=== PATIENT | male | born 1965 | race Caucasian/White ===

== ENCOUNTER → 2018-08-15 14:54 | Outpatient (CLI) | payer OTHER, SELFPAY ==
[2018-08-15 16:26] LABS: ALB/GLOB Ratio 0.8 RATIO (0.9-2.4); AST(SGOT) 26 U/L (15-37); Alanine Aminotransfer ALT/SGPT 35 U/L (16-61); Albumin, Serum 3.5 g/dL (3.2-5.0); Alkaline Phosphatase 141 U/L (45-117); Anion Gap 8 (5-15); BUN 18 mg/dL (7-18); BUN/Creat Ratio 17.1 RATIO (10-20); Calcium,Total 8.9 mg/dL (8.5-10.1); Chloride 103 mmol/L (98-107); Cholesterol 205 mg/dL (200); Creatinine, Serum 1.05 mg/dL (0.70-1.30); EST Glomerular Filtration Rate 78 mL/min (>60); Est Glom Filt Rate - Afr Amer 95 mL/min (>60); Globulin 4.5 g/dL (2.2-4.2); Glucose 143 mg/dL (74-106); High Density Lipoprotein 71 mg/dL; Potassium 4.2 mmol/L (3.5-5.1); Sodium Level 139 mmol/L (136-145); Triglycerides 86 mg/dL; Very Low Density Lipoprotein 17 mg/dL (5-40)
== END ==
PROVIDERS: Family Provider Family Medicine; PCP Family Medicine; Referring Provider Nurse Practitioner; Visit Provider Nurse Practitioner
DX: E11.9 Type 2 diabetes mellitus without complications (principal)
CPT/HCPCS: 36415; 80053; 80061; 82043; 82570; 83036

== ENCOUNTER → 2018-08-18 13:51 | Outpatient (CLI) | payer OTHER, SELFPAY ==
[2018-01-20 15:39] VITALS: BMI 23.0
[2018-08-18 13:54] LABS: Bacteria 0 SEEN /hpf (None Seen); Mucous, Urine 0 SEEN /hpf (<or=2+); Red Blood Cells-Urine 0 SEEN /hpf (0-5); Squamous Epithelial Cells - UA 0 SEEN /hpf (0-5); White Blood Cells 0 SEEN /hpf (0-5)
[2018-08-18 15:01] LABS: Color, Urine Yellow (Yellow); Glucose, Dipstick Normal (Normal); Ketone-Dipstick Negative (Negative); Leukocyte Esterase-Dipstick Negative /ul (Negative); Nitrite-Dipstick Negative (Negative); Occult Blood-Urine Negative /ul (Negative); Protein-Dipstick 30 mg/dl (Negative); Specific Gravity, Urine 1.005 (1.002-1.030); Urine Bilirubin Dipstick Negative (Negative); Urine Clarity Sl. Cloudy (Clear); Urine Urobilinogen Normal (Normal)
[2018-08-22 11:34] LABS: Microalbumin:Creatinine Ratio 1714.3 mg/g CRE (<30 mg/g CRE)
== END ==
PROVIDERS: Family Provider Family Medicine; PCP Family Medicine; Referring Provider Nurse Practitioner; Visit Provider Nurse Practitioner
DX: E10.9 Type 1 diabetes mellitus without complications (principal)
CPT/HCPCS: 81001; 82043; 82570

== ENCOUNTER → 2020-09-12 15:10 | Outpatient (CLI) | payer BC, SELFPAY ==
[2020-09-12 14:10] VITALS: BMI 25.0
[2020-09-12 16:54] LABS: ALB/GLOB Ratio 1.2 RATIO (0.9-2.4); AST(SGOT) 40 U/L (15-37); Alanine Aminotransfer ALT/SGPT 50 U/L (16-61); Albumin, Serum 3.6 g/dL (3.2-5.0); Alkaline Phosphatase 143 U/L (45-117); Anion Gap 6 (5-15); BUN 13 mg/dL (7-18); BUN/Creat Ratio 12.1 RATIO (10-20); Calcium,Total 9.1 mg/dL (8.5-10.1); Chloride 104 mmol/L (98-107); Cholesterol 218 mg/dL (200); Creatinine, Serum 1.07 mg/dL (0.70-1.30); EST Glomerular Filtration Rate 76 mL/min (>60); Est Glom Filt Rate - Afr Amer 92 mL/min (>60); Globulin 3.1 g/dL (2.2-4.2); Glucose 72 mg/dL (74-106); High Density Lipoprotein 55 mg/dL; Potassium 4.4 mmol/L (3.5-5.1); Protein, Total 6.7 g/dL (6.4-8.2); Sodium Level 139 mmol/L (136-145); Thyroid Stim Hormone (TSH) 5.59 uIU/mL (0.358-3.74); Triglycerides 122 mg/dL; Very Low Density Lipoprotein 24 mg/dL (5-40)
== END ==
PROVIDERS: PCP Family Medicine; Referring Provider Internal Medicine Endocrinology, Diabetes & Metabolism; Visit Provider Internal Medicine Endocrinology, Diabetes & Metabolism
DX: E10.9 Type 1 diabetes mellitus without complications (principal)
CPT/HCPCS: 36415; 80053; 80061; 84443

== ENCOUNTER → 2021-02-06 15:27 | Outpatient (CLI) | payer BC, SELFPAY ==
[2021-02-06 14:43] VITALS: BMI 25.0
[2021-02-06 17:21] LABS: T4 Free Direct 1.02 ng/dL (0.76-1.46); Thyroid Stim Hormone (TSH) 1.83 uIU/mL (0.358-3.74)
[2021-02-06 21:25] LABS: Vitamin D,25 Hydroxy 36.2 ng/mL
== END ==
PROVIDERS: PCP Family Medicine; Referring Provider Nurse Practitioner Family; Visit Provider Nurse Practitioner Family
DX: E03.9 Hypothyroidism, unspecified (principal); E55.9 Vitamin D deficiency, unspecified
CPT/HCPCS: 36415; 82306; 84439; 84443

== ENCOUNTER 2021-10-15 15:12 | Outpatient (CLI) | payer BC, SELFPAY ==
[2021-10-15 17:34] LABS: ALB/GLOB Ratio 0.9 RATIO (0.9-2.4); AST(SGOT) 45 U/L (15-37); Alanine Aminotransfer ALT/SGPT 51 U/L (16-61); Albumin, Serum 3.8 g/dL (3.2-5.0); Alkaline Phosphatase 149 U/L (45-117); Anion Gap 6 (5-15); BUN 17 mg/dL (7-18); BUN/Creat Ratio 15.3 RATIO (10-20); Calcium,Total 9.4 mg/dL (8.5-10.1); Chloride 105 mmol/L (98-107); Cholesterol 157 mg/dL (200); Creatinine, Serum 1.11 mg/dL (0.70-1.30); EST Glomerular Filtration Rate 73 mL/min (>60); Est Glom Filt Rate - Afr Amer 88 mL/min (>60); Globulin 4.1 g/dL (2.2-4.2); Glucose 89 mg/dL (74-106); High Density Lipoprotein 58 mg/dL; Potassium 3.9 mmol/L (3.5-5.1); Protein, Total 7.9 g/dL (6.4-8.2); Sodium Level 137 mmol/L (136-145); T4 Free Direct 1.16 ng/dL (0.76-1.46); Thyroid Stim Hormone (TSH) 1.34 uIU/mL (0.358-3.74); Triglycerides 58 mg/dL; Very Low Density Lipoprotein 12 mg/dL (5-40)
== END 2021-10-15 23:59 | disposition home or self-care (01) ==
LOC: BIMLAB 15:13
PROVIDERS: PCP Family Medicine; Referring Provider Nurse Practitioner Family; Visit Provider Nurse Practitioner Family
DX: E10.65 Type 1 diabetes mellitus with hyperglycemia (principal); E55.9 Vitamin D deficiency, unspecified; E03.9 Hypothyroidism, unspecified
CPT/HCPCS: 36415; 80053; 80061; 82306; 84439; 84443

== ENCOUNTER → 2022-08-24 | Outpatient (CLI) | payer BC, SELFPAY ==
[2022-08-24 18:03] LABS: Vitamin D,25 Hydroxy 34.8 ng/mL
[2022-08-24 18:10] LABS: Microalbumin:Creatinine Ratio 2043.2 mg/g CRE (<30 mg/g CRE)
[2022-08-24 19:19] LABS: ALB/GLOB Ratio 0.9 RATIO (0.9-2.4); AST(SGOT) 57 U/L (15-37); Alanine Aminotransfer ALT/SGPT 68 U/L (16-61); Albumin, Serum 3.6 g/dL (3.2-5.0); Alkaline Phosphatase 176 U/L (45-117); Anion Gap 9 (5-15); BUN 27 mg/dL (7-18); BUN/Creat Ratio 19.4 RATIO (10-20); Calcium,Total 9.5 mg/dL (8.5-10.1); Chloride 104 mmol/L (98-107); Cholesterol 169 mg/dL (200); Creatinine, Serum 1.39 mg/dL (0.70-1.30); EST Glomerular Filtration Rate 56 mL/min (>60); Est Glom Filt Rate - Afr Amer 67 mL/min (>60); Glucose 184 mg/dL (74-106); High Density Lipoprotein 69 mg/dL; Potassium 4.2 mmol/L (3.5-5.1); Protein, Total 7.6 g/dL (6.4-8.2); Sodium Level 138 mmol/L (136-145); T4 Free Direct 1.12 ng/dL (0.76-1.46); Thyroid Stim Hormone (TSH) 2.56 uIU/mL (0.358-3.74); Triglycerides 92 mg/dL; Very Low Density Lipoprotein 18 mg/dL (5-40)
[2022-08-24 22:36] LABS: Follicle Stimulating Hormone 2.7 mIU/mL; Luteinizing Hormone 8.8 mIU/mL
[2022-08-30 11:07] LABS: Testosterone, Free 5.22 ng/dL (5.00-21.00)
[2022-08-30 15:20] LABS: Testosterone, % Free 0.85 % (1.50-4.20); Testosterone, Total 614 ng/dL (264-916)
== END | disposition home or self-care (01) ==
LOC: LAB 16:27
PROVIDERS: PCP Family Medicine; Referring Provider Internal Medicine Endocrinology, Diabetes & Metabolism; Visit Provider Internal Medicine Endocrinology, Diabetes & Metabolism
DX: E55.9 Vitamin D deficiency, unspecified (principal); E10.29 Type 1 diabetes mellitus with other diabetic kidney complication; R80.9 Proteinuria, unspecified; E03.9 Hypothyroidism, unspecified
CPT/HCPCS: 36415; 80053; 80061; 82043; 82306; 82570; 83001; 83002; 84402; 84403; 84439; 84443

== ENCOUNTER → 2022-09-16 | Outpatient (CLI) | payer BC, SELFPAY ==
[2022-09-16 16:32] LABS: Absolute Lymphocyte Count 3.16 X10^3/uL (0.83-4.51); Absolute Neutrophil Count 3.4 X10^3/uL (2.0-7.7); Basophil# 0.06 X10^3/uL; Basophil% 0.7 % (0-1); Eosinophil# 0.39 X10^3/uL; Eosinophils% 4.7 % (0-5); Hemoglobin 13.8 g/dL (13.0-16.5); Lymphocyte # 3.16 X10^3/ul (0.83-4.51); Mean Corp Hgb Conc 33.7 g/dL (32-36); Mean Corpuscular Hgb 30.6 pg (27.0-32.0); Mean Corpuscular Volume 90.9 fL (80-94); Mean Platelet Vol. 13.1 fl (6.2-12.0); Monocyte# 1.35 X10^3/uL; Monocyte% 16.2 % (0-10); NRBC Flagged by Analyzer 0 % (0-5); Neutrophil # 3.35 X10^3/uL (2.7-7.7); Neutrophil % 40.3 % (47-70); Platelet Count 208 K/mm3 (150-450); RBC Distribution Width SD 47.2 fl (35.1-43.9); Red Blood Count 4.51 M/mm3 (4.6-6.2); White Blood Count 8.3 K/mm3 (4.4-11.0)
[2022-09-18 08:29] LABS: Immunoglobulin G 1388 mg/dL (603-1613)
== END | disposition home or self-care (01) ==
PROVIDERS: PCP Family Medicine
DX: D80.3 Selective deficiency of immunoglobulin G [IgG] subclasses (principal)
CPT/HCPCS: 36415; 82784; 85025

== ENCOUNTER → 2022-10-10 | Outpatient (CLI) | payer BC, SELFPAY ==
--- NOTE | 2022-10-10 07:32 | US_ITS ---
INDICATION: High liver enzymes EXAMINATION: Ultrasound US Abdomen RUQ (limited) TECHNIQUE: Lucas-scale and color Doppler imaging was performed of the abdomen. COMPARISON: None. FINDINGS: LIVER: There is normal echotexture. No focal hepatic lesion. No intrahepatic biliary ductal dilatation. There is no free fluid. GALLBLADDER AND BILIARY TREE: No shadowing gallstone, pericholecystic fluid or gallbladder wall thickening is demonstrated. The proximal common bile duct measures 2.9 mm, which is within normal limits for the patient''s age. SONOGRAPHIC KIDD''S SIGN: Negative. PANCREAS: No focal abnormality is demonstrated in the pancreas. No pancreatic ductal dilatation. SPLEEN: The spleen is normal in size and homogeneous in echotexture. Right kidney: There is no hydronephrosis. No shadowing calculus, focal lesion, or perinephric collection is demonstrated. VESSELS: Aorta and IVC not visualized. US/Liver IMPRESSION: No acute sonographic abnormality is demonstrated in the abdomen. Electronically Signed: Kavin Helms MD, WAYLON at 8:36 EDT ,
== END | disposition home or self-care (01) ==
LOC: US 07:31
PROVIDERS: PCP Family Medicine; Visit Provider Internal Medicine Endocrinology, Diabetes & Metabolism
DX: R74.01 Elevation of levels of liver transaminase levels (principal)
CPT/HCPCS: 76705

== ENCOUNTER → 2022-12-22 | Outpatient (CLI) | payer BC, SELFPAY ==
[2022-12-22 14:18] LABS: Absolute Lymphocyte Count 3.48 X10^3/uL (0.83-4.51); Absolute Neutrophil Count 2.6 X10^3/uL (2.0-7.7); Basophil# 0.07 X10^3/uL; Basophil% 0.8 % (0-1); Differential Indicated SCAN CRITERIA MET; Eosinophils% 8.4 % (0-5); Hematocrit 43.2 % (40-54); Hemoglobin 14.4 g/dL (13.0-16.5); Lymphocyte # 3.48 X10^3/ul (0.83-4.51); Lymphocyte % 41.9 % (19-41); Mean Corp Hgb Conc 33.3 g/dL (32-36); Mean Corpuscular Hgb 31.1 pg (27.0-32.0); Mean Corpuscular Volume 93.3 fL (80-94); Mean Platelet Vol. 12.4 fl (6.2-12.0); Monocyte# 1.49 X10^3/uL; NRBC Flagged by Analyzer 0 % (0-5); Neutrophil # 2.55 X10^3/uL (2.7-7.7); Neutrophil % 30.8 % (47-70); POSITIVE MORPHOLOGY YES; Platelet Count 218 K/mm3 (150-450); RBC Distribution Width CV 14.5 % (11.6-14.6); RBC Distribution Width SD 49.8 fl (35.1-43.9); Red Blood Count 4.63 M/mm3 (4.6-6.2); White Blood Count 8.3 K/mm3 (4.4-11.0)
[2022-12-22 14:45] LABS: Differential Comment SCANNED
[2022-12-24 05:07] LABS: Immunoglobulin G 1373 mg/dL (603-1613)
== END | disposition home or self-care (01) ==
LOC: LAB 14:01
DX: D80.3 Selective deficiency of immunoglobulin G [IgG] subclasses (principal)
CPT/HCPCS: 36415; 82784; 85025

== ENCOUNTER → 2023-04-20 | Outpatient (CLI) | payer BC, SELFPAY ==
[2023-04-20 14:57] LABS: Absolute Lymphocyte Count 2.91 X10^3/uL (0.83-4.51); Absolute Neutrophil Count 2.4 X10^3/uL (2.0-7.7); Basophil# 0.06 X10^3/uL; Basophil% 0.8 % (0-1); Eosinophil# 0.31 X10^3/uL; Eosinophils% 4.3 % (0-5); Hematocrit 43.6 % (40-54); Hemoglobin 14.3 g/dL (13.0-16.5); Lymphocyte # 2.91 X10^3/ul (0.83-4.51); Lymphocyte % 40.1 % (19-41); Mean Corp Hgb Conc 32.8 g/dL (32-36); Mean Corpuscular Hgb 30.3 pg (27.0-32.0); Mean Corpuscular Volume 92.4 fL (80-94); Mean Platelet Vol. 13.4 fl (6.2-12.0); Monocyte# 1.55 X10^3/uL; Monocyte% 21.4 % (0-10); NRBC Flagged by Analyzer 0 % (0-5); Neutrophil # 2.41 X10^3/uL (2.7-7.7); Neutrophil % 33.3 % (47-70); POSITIVE DIFFERENTIAL YES; Platelet Count 193 K/mm3 (150-450); RBC Distribution Width CV 14.2 % (11.6-14.6); RBC Distribution Width SD 48.7 fl (35.1-43.9); Red Blood Count 4.72 M/mm3 (4.6-6.2); White Blood Count 7.3 K/mm3 (4.4-11.0)
[2023-04-20 15:17] LABS: Differential Indicated SCAN CRITERIA MET
[2023-04-22 05:07] LABS: Immunoglobulin G 1570 mg/dL (603-1613)
== END | disposition home or self-care (01) ==
DX: D80.3 Selective deficiency of immunoglobulin G [IgG] subclasses (principal)
CPT/HCPCS: 36415; 82784; 85025

== ENCOUNTER → 2023-08-03 | Outpatient (CLI) | payer BC, SELFPAY ==
[2023-08-03 14:40] LABS: Absolute Lymphocyte Count 2.92 X10^3/uL (0.83-4.51); Absolute Neutrophil Count 3.6 X10^3/uL (2.0-7.7); Basophil# 0.05 X10^3/uL; Basophil% 0.6 % (0-1); Eosinophil# 0.42 X10^3/uL; Eosinophils% 5.1 % (0-5); Hematocrit 44.1 % (40-54); Hemoglobin 14.5 g/dL (13.0-16.5); Lymphocyte # 2.92 X10^3/ul (0.83-4.51); Lymphocyte % 35.2 % (19-41); Mean Corp Hgb Conc 32.9 g/dL (32-36); Mean Corpuscular Hgb 30.7 pg (27.0-32.0); Mean Corpuscular Volume 93.4 fL (80-94); Mean Platelet Vol. 12.6 fl (6.2-12.0); Monocyte# 1.33 X10^3/uL; NRBC Flagged by Analyzer 0 % (0-5); Neutrophil # 3.56 X10^3/uL (2.7-7.7); Platelet Count 210 K/mm3 (150-450); RBC Distribution Width CV 14.5 % (11.6-14.6); Red Blood Count 4.72 M/mm3 (4.6-6.2); White Blood Count 8.3 K/mm3 (4.4-11.0)
[2023-08-05 05:08] LABS: Immunoglobulin G 1376 mg/dL (603-1613)
== END | disposition home or self-care (01) ==
LOC: LAB 14:05
DX: D80.3 Selective deficiency of immunoglobulin G [IgG] subclasses (principal)
CPT/HCPCS: 36415; 82784; 85025

== ENCOUNTER → 2023-08-17 | Outpatient (CLI) | payer BC, SELFPAY ==
--- OUTSIDE RECORDS SUMMARY | 2023-08-17 17:09 | XMS RPT_ITS | CCD ---
Author Name Unknown Address [address] [place] [address] Organization [facility] Care Team Providers Care Tieing Machine Operator Name Role Phone Negar Engle NP Unavailable [phone] Valerie Sexton Unavailable Unavailable Negar Engle NP Unavailable GORDON DORANTES, DR PETAR [place] Primary Care Physician GORDON DORANTES, DR PETAR [place] Primary Care Physician VITOR PECK Attending Emily LEYVA MD., DR. PETAR [place] [facility] VITOR Crockett Attending Emily LEYVA MD., DR. PETAR [place] [facility] MOOSE Chilel DO Attending Emily LEYVA MD., DR. PETAR [place] [facility] VITOR Crockett Attending Emily LEYVA MD., DR. PETAR [place] Primary [facility] VITOR Crockett Attending Emily LEYVA MD., DR. PETAR [place] Primary [facility] VITOR Crockett Attending Emily LEYVA MD., DR. PETAR [place] Primary [facility] VITOR Crockett Attending Unavailable GORDON MISHRA, DR. PETAR [place] Primary [facility] VITOR Crockett Attending Emily LEYVA MD., DR. PETAR [place] Primary [facility] VITOR Crockett Attending Emily LEYVA MD., DR. PETAR [place] Primary Care VITOR Crockett Attending Unavailable GORDON MISHRA, DR. PETAR [place] Primary Care VITOR Crockett Attending Emily LEYVA MD., DR. PETAR [place] Primary Care VITOR Crockett Attending Unavailable GORDON DORANTES., DR. PETAR [place] Primary Care VITOR Crockett Attending Unavailable GORDON MISHRA, DR. PETAR [place] Primary Care Wendy Ganrer MD Unavailable [phone] WENDY CANELA Attending Unavailable WENDY CANELA Referring Unavailable WENDY CANELA Attending Unavailable Medications Current Medications Medication Drug Class(es) Dates Sig (Normalized) Sig (Original) enalapril maleate 10 mg oral tablet (20 sources) Angiotensin Converting Enzyme Inhibitor Start: 05-10-2019 enalapril 10 mg oral tablet Dose : 10 mg = 1 tab(s), Oral, qHS, # 90 tab(s), 3 Refill(s), Pharmacy: [facility]/pharmacy #[id number] Start Date: 05/10/19 Status: Ordered Completed/Discontinued Medications Medication Drug Class(es) Dates Sig (Normalized) Sig (Original) INSULIN NPH ISOPHANE & REGULAR (4 sources) Insulin Start: 12-28-2016 NOVOLIN 70/30 (70-30) 100 UNIT/ML SUSP as directed with meals INSULIN NPH ISOPHANE & REGULAR [id number] Alycia Osullivan Problems Problem Classification Problem Date Documented Da te Episodic/Chronic Diabetes mellitus without complication (16 sources) Type 1 diabetes mellitus without complications; Translations: [Type 1 diabetes mellitus] 12-28-2016 Chronic Other male genital disorders (2 sources) Erectile dysfunction co-occurrent and due to arterial insufficiency; Translations: [Erectile dysfunction due to arterial insufficiency] 02-01-2023 Chronic Other male genital disorders (2 sources) Impotence; Translations: [Erectile Dysfunction] Onset: 02-01-2023 Chronic Other male genital disorders (2 sources) Disorder of prostate; Translations: [Disorder of prostate, unspecified] 02-01-2023 Episodic Other male genital disorders (2 sources) Disorder of prostate, unspecified; Translations: [Disorder of prostate, unspecified] Onset: 02-01-2023 Episodic Other screening for suspected conditions (not mental disorders or infectious disease) (1 source) Raised prostate specific antigen; Translations: [Elevated prostate specific antigen [PSA]] 02-03-2023 Episodic Unclassified (2 sources) New Patient; Translations: [New Patient] Onset: 02-01-2023 Results Test Name Value Interpretation Reference Range Facil ity Vital Signs Date Time Vital Sign Value Performing Clinician Facility 02-01-2023 14:39-0400 Body height 172.7 cm Wendy Canela MD Work Phone: [facility] 02-01-2023 14:39-0400 Body mass index (BMI) [Ratio] 22.05 kg/m2 Wendy Canela MD Work Phone: [facility] 02-01-2023 14:39-0400 Body weight 65.77 kg Wendy Canela MD Work Phone: [facility] 02-01-2023 14:39-0400 Diastolic blood pressure 80 mm[Hg] Wendy Canela MD Work Phone: [facility] 02-01-2023 14:39-0400 Heart rate 68 /min Wendy Canela MD Work Phone: [facility] 02-01-2023 14:39-0400 Systolic blood pressure 155 mm[Hg] Wendy Canela MD Work Phone: [facility] 05-22-2022 15:44-0400 Body temperature 96.98 [degF] MOOSE REYES DO [facility] 05-22-2022 15:44-0400 Diastolic Blood Pressure NBP 67 1 MOOSE REYES DO [facility] 05-22-2022 15:44-0400 Heart rate 66 /min MOOSE REYES DO [facility] 05-22-2022 15:44-0400 Respiratory rate 18 /min MOOSE REYES DO [facility] 05-22-2022 15:44-0400 Systolic Blood Pressure NBP 129 1 MOOSE REYES DO [facility] 04-24-2022 15:52-0400 Body temperature 97.88 [degF] VITOR PECK [facility] 04-24-2022 15:52-0400 Diastolic Blood Pressure NBP 80 1 VITOR PECK [facility] 04-24-2022 15:52-0400 Heart rate 60 /min VITOR PECK [facility] 04-24-2022 15:52-0400 Respiratory rate 18 /min VITOR PECK [facility] 04-24-2022 15:52-0400 Systolic Blood Pressure NBP 136 1 VITOR PECK [facility] 01-23-2022 18:35-0400 Body temperature 98.06 [degF] VITOR PECK [facility] 01-23-2022 18:35-0400 Diastolic blood pressure 69 mm[Hg] VITOR PECK [facility] 01-23-2022 18:35-0400 Heart rate 58 /min VITOR PECK [facility] 01-23-2022 18:35-0400 Respiratory rate 18 /min VITOR PECK [facility] 01-23-2022 18:35-0400 Systolic blood pressure 166 mm[Hg] VITOR PECK [facility] 01-23-2022 16:35-0400 Body temperature 98.06 [degF] VITOR PECK [facility] 01-23-2022 16:35-0400 Diastolic Blood Pressure NBP 66 1 VITOR PECK [facility] 01-23-2022 16:35-0400 Heart rate 68 /min VITOR SHUKLANEIL [facility] 01-23-2022 16:35-0400 Respiratory rate 18 /min VITOR SHUKLANEIL [facility] 01-23-2022 16:35-0400 Systolic Blood Pressure NBP 127 1 VITOR SHUKLANEIL [facility] 12-26-2021 15:35-0400 Body temperature 97.7 [degF] VITOR SHUKLANEIL [facility] 12-26-2021 15:35-0400 Diastolic blood pressure 82 mm[Hg] VITOR SHUKLANEIL [facility] 12-26-2021 15:35-0400 Heart rate 66 /min VITOR PECK [facility] 12-26-2021 15:35-0400 Mean blood pressure 104 mm[Hg] VITOR SHUKLANEIL [facility] 12-26-2021 15:35-0400 Reason For Taking VItal Signs VITOR SHUKLANEIL [facility] 12-26-2021 15:35-0400 Respiratory rate 18 /min VITOR SHUKLANEIL [facility] 12-26-2021 15:35-0400 Systolic blood pressure 149 mm[Hg] VITOR PECK [facility] 12-05-2021 16:00-0400 Body temperature 98.24 [degF] VITOR PECK [facility] 12-05-2021 16:00-0400 Diastolic blood pressure 69 mm[Hg] VITOR PECK [facility] 12-05-2021 16:00-0400 Heart rate 60 /min VITOR PECK [facility] 12-05-2021 16:00-0400 Mean blood pressure 93 mm[Hg] VITOR PECK [facility] 12-05-2021 16:00-0400 Reason For Taking VItal Signs VITOR PECK [facility] 12-05-2021 16:00-0400 Respiratory rate 20 /min VITOR PECK [facility] 12-05-2021 16:00-0400 Systolic blood pressure 140 mm[Hg] VITOR SHUKLANEIL [facility] 11-14-2021 16:21-0400 Body temperature 98.24 [degF] VITOR SHUKLANEIL [facility] 11-14-2021 16:21-0400 Diastolic blood pressure 78 mm[Hg] VITOR SHUKLANEIL [facility] 11-14-2021 16:21-0400 Heart rate 64 /min VITOR SHUKLANEIL [facility] 11-14-2021 16:21-0400 Mean blood pressure 101 mm[Hg] VITOR SHUKLANEIL [facility] 11-14-2021 16:21-0400 Reason For Taking VItal Signs VITOR PECK [facility] 11-14-2021 16:21-0400 Respiratory rate 18 /min VTIOR PECK [facility] 11-14-2021 16:21-0400 Systolic blood pressure 148 mm[Hg] VITOR SHUKLANEIL [facility] 10-10-2021 14:46-0400 Body temperature 98.06 [degF] VITOR SHUKLANEIL [facility] 10-10-2021 14:46-0400 Diastolic blood pressure 71 mm[Hg] VITOR SHUKLANEIL [facility] 10-10-2021 14:46-0400 Heart rate 64 /min VITOR SHUKLANEIL [facility] 10-10-2021 14:46-0400 Mean blood pressure 98 mm[Hg] VITOR PECK [facility] 10-10-2021 14:46-0400 Respiratory rate 18 /min VITOR PECK [facility] 10-10-2021 14:46-0400 Systolic blood pressure 152 mm[Hg] VITOR PECK [facility] 08-22-2021 15:24-0500 Body temperature 97.7 [degF] VITOR PECK [facility] 08-22-2021 15:24-0500 Diastolic blood pressure 78 mm[Hg] VITOR PECK [facility] 08-22-2021 15:24-0500 Heart rate 65 /min VITOR PECK [facility] 08-22-2021 15:24-0500 Respiratory rate 18 /min VITOR PECK [facility] 08-22-2021 15:24-0500 Systolic blood pressure 175 mm[Hg] VITOR PECK [facility] 07-28-2021 16:17-0500 Body temperature 97.88 [degF] VITOR PECK [facility] 07-28-2021 16:17-0500 Diastolic blood pressure 84 mm[Hg] VITOR PECK [facility] 07-28-2021 16:17-0500 Heart rate 61 /min VITOR PECK [facility] 07-28-2021 16:17-0500 Mean blood pressure 105 mm[Hg] VITOR PECK [facility] 07-28-2021 16:17-0500 Respiratory rate 18 /min VITOR PECK [facility] 07-28-2021 16:17-0500 Systolic blood pressure 148 mm[Hg] VITOR PECK [facility] 05-23-2021 15:51-0400 Body temperature 97.52 [degF] VITOR PECK [facility] 05-23-2021 15:51-0400 Diastolic blood pressure 73 mm[Hg] VITOR PECK [facility] 05-23-2021 15:51-0400 Heart rate 62 /min VITOR PECK [facility] 05-23-2021 15:51-0400 Mean blood pressure 94 mm[Hg] VITOR PECK [facility] 05-23-2021 15:51-0400 Reason For Taking VItal Signs VITOR PECK [facility] 05-23-2021 15:51-0400 Respiratory rate 18 /min VITOR PECK [facility] 05-23-2021 15:51-0400 Systolic blood pressure 137 mm[Hg] VITOR PECK [facility] 12-28-2016 15:18-0400 BMI (Body Mass Index) 21.92 kg/m2 Negar Engle EM[employer]OYMENT SERVICES DIRECTOR [facility] Work Phone: 12-28-2016 15:18-0400 Body Temperature 98 [degF] Negar Engle EM[employer]OYMENT SERVICES DIRECTOR [facility] Work Phone: 12-28-2016 15:18-0400 BP Diastolic 79 mm[Hg] Negar Engle EMPLOYMENT SERVICES DIRECTOR [facility] Work Phone: 12-28-2016 15:18-0400 BP Systolic 132 mm[Hg] Negar Engle NP [facility] Work Phone: 12-28-2016 15:18-0400 Height 172.72 cm Negar Engle EMPLOYMENT SERVICES DIRECTOR [facility] Work Phone: 12-28-2016 15:18-0400 Pulse (Heart Rate) 72 /min Negar Engle EMPLOYMENT SERVICES DIRECTOR [facility] Work Phone: 12-28-2016 15:18-0400 Pulse Oximetry 96 % Negar Engle NP [facility] Work Phone: 12-28-2016 15:18-0400 Respiratory Rate 18 /min Negar Engle EMPLOYMENT SERVICES DIRECTOR [facility] Work Phone: 12-28-2016 15:18-0400 Weight 65.41 kg Negar Engle NP [facility] Work Phone: Encounters Encounter Date Encounter Type Care Provider Facility Start: 02-03-2023 Telephone encounter Wendy Canela MD Work Phone: [facility] Urology Procedures Date Procedure Procedure Detail Performing Clinician Start: 12-28-2016 End: 12-28-2016 *CMP Complete Metabolic Panel Negar Engle NP Work Phone: Start: 12-28-2016 End: 12-28-2016 *Microalbumin, Creatine Ratio, rand urine Negar Engle NP Work Phone: Start: 12-28-2016 End: 12-28-2016 HbA1c Negar Engle NP Work Phone: Start: 12-28-2016 End: 12-28-2016 Lipid panel [AGGREGATE] Negar Engle N P Work Phone: Splenectomy VITOR PECK Plan of Treatment Date Care Activity Detail Author Start: 03-19-2023 Influenza vaccination Influenza Vacc ine (#1) [facility] Start: 02-03-2023 End: 02-04-2024 PSA, total and free PSA, total and free Lab Routine Elevated PSA Expected: 02/03/2023 (Approximate), Expires: 02/04/2024 [facility] Work Phone: Immunizations Immunization Date Immunization Notes Care Provider Jason padgett 05-22-2022 immune globulin, unspecified formulation MOOSE REYES DO [facility] 05-07-2022 influenza virus vacc ine, unspecified formulation Wendy Canela MD Work Phone: [facility] 04-24-2022 immune globulin, unspecified formulation VITOR PECK [facility] 03-27-2022 immune globulin, unspecified formulation VITOR PECK [facility] 02-20-2022 immune globulin, unspecified formulation VITOR PECK [facility] 01-23-2022 immune globulin, unspecified formulation VITOR PECK [facility] 12-26-2021 immune globulin, unspecified formulation VITOR PECK [facility] 12-05-2021 immune globulin, unspecified formulation VITOR PECK [facility] 11-14-2021 immune globulin, unspecified formulation VITOR PECK [facility] 10-10-2021 immune globulin, unspecified formulation; Translations: [Synribo] VITOR PECK [facility] 08-22-2021 immune globulin, unspecified formulation VITOR PECK [facility] 07-28-2021 immune globulin, intravenous VITOR PECK [facility] 07-28-2021 immune globulin, unspecified formulation VITOR PECK [facility] 06-20-2021 immune globulin, intravenous; Translations: [Synribo] VITOR PECK [facility] 06-20-2021 immune globulin, unspecified formulation; Translations: [Synribo] VITOR PECK [facility] 05-23-2021 immune globulin, intravenous; Translations: [Riabni] VITOR PECK [facility] 05-23-2021 immune globulin, unspecified formulation; Translations: [Synribo] VITOR PECK [facility] 04-18-2021 immune globulin, intravenous; Translations: [Riabni] VITOR PECK [facility] 04-18-2021 immune globulin, unspecified formulation; Translations: [Synribo] VITOR PECK [facility] 03-20-2021 immune globulin, intravenous; Translations: [Riabni] VITOR PECK [facility] 03-20-2021 immune globulin, unspecified formulation; Translations: [Synribo] VITOR PECK [facility] 02-20-2021 immune globulin, intravenous; Translations: [Riabni] VITOR PECK [facility] 02-20-2021 immune globulin, unspecified formulation; Translations: [Synribo] VITOR PECK [facility] 01-23-2021 immune globulin, intravenous; Translations: [Riabni] VITOR PECK [facility] 01-23-2021 immune globulin, unspecified formulation; Translations: [Synribo] VITOR PECK [facility] 12-26-2020 immune globulin, intravenous; Translations: [Riabni] VITORMAX PECK [facility] 12-26-2020 immune globulin, unspecified formulation; Translations: [Synribo] VITOR PECK [facility] 11-18-2020 immune globulin, intravenous; Translations: [Riabni] VITORMAX PECK [facility] 11-18-2020 immune globulin, unspecified formulation; Translations: [Synribo] VITOR PECK [facility] 10-21-2020 immune globulin, intravenous; Translations: [Riabni] VITORMAX PECK [facility] 10-21-2020 immune globulin, unspecified formulation; Translations: [Synribo] VITORMAX PECK [facility] 09-16-2020 immune globulin, intravenous; Translations: [Riabni] VITORMAX PECK [facility] 09-16-2020 immune globulin, unspecified formulation; Translations: [Synribo] VITOR PECK [facility] 08-19-2020 immune globulin, intravenous; Translations: [Riabni] VITOR PECK [facility] 08-19-2020 immune globulin, unspecified formulation; Translations: [Synribo] VITOR PECK [facility] 07-22-2020 immune globulin, intravenous; Translations: [Riabni] VITOR PECK [facility] 07-22-2020 immune globulin, unspecified formulation; Translations: [Synribo] VITOR PECK [facility] 06-26-2020 immune globulin, intravenous; Translations: [Riabni] VITOR PECK [facility] 06-26-2020 immune globulin, unspecified formulation; Translations: [Synribo] VITOR PECK [facility] 05-16-2020 immune globulin, intravenous; Translations: [Riabni] VITOR PECK [facility] 05-16-2020 immune globulin, unspecified formulation; Translations: [Synribo] VITOR PECK [facility] 06-09-2012 pneumococcal polysaccharide vaccine, 23 valent VITOR PECK [facility] 06-09-2012 meningococcal polysaccharide (groups A, C, Y and W-135) diphtheria toxoid conjugate vaccine (MCV4P) VITOR PECK [facility] Payers Date Payer Category Payer Unknown [id number] 2021 Unknown [id number] 2020 Unknown ANTHEM BLUE CROS S ANTHEM BLUE CROSS [id number] 2020-Present [address] [place] [address] Commercial [id number] 2020 Unknown [id number] 1965 Unknown [id number] 1964 Unknown [id number] 1964 Unknown [id number] 1964 Unknown [id number] 1964 Unknown [id number] 1964 Unknown [id number] 1964 Unknown [id number] 1964 Unknown [id number] 1964 Unknown [id number] 1964 Unknown [id number] 1964 Unknown [id number] 1965 Unknown [id number] 1965 Unknown [id number] Social History Date Type Detail Facility Tobacco Tobacco Use: Nev er smoked; Formerly chewed tobacco in the past. [facility] Start: 02-01-2023 Ex-smoker (finding) [place] Start: 1965 Sex Assigned At Male A [facility] History of tobacco use Current smoker [facility] History of tobacco use Cigarette Smoker [facility] Start: 02-01-2023 Tobacco use and exposure Smoke less tobacco non-user [facility] Start: 02-01-2023 Alcohol intake Current drinke r of alcohol (finding) [facility] Start: 01-26-2023 Gender identity Identifies as male gender (finding) [facility] Start: 02-01-2023 Sexual orientation Not on file [facility] Start: 01-22-2023 End: 02-01-2023 Exposure to SARS-CoV-2 (event) Not sure [facility] Start: 02-01-2023 History of Social function [facility] Functional Status Date Assessment Result Facility 05-22-2022 Functional Status Standard Safety ID band on [facility] 04-24-2022 Functional Status Awake, Up to chair [facility] 12-26-2021 Functional Status Room check performed [facility] 11-14-2021 Functional Status [facility] 11-14-2021 Functional Status [facility] Clinical Notes 05-22-2022 to 02-04-2023 Telephone Encounter - Petar Cagle RN - 02/04/2023 4:12 PM EDTTelephone Encounter - Petar Cagle RN - 02/04/2023 4:12 PM EDTTelephone Encounter - Roslyn Sheridan RN - 02/03/2023 11:58 AM EDT Note Date & Type Note Facility 02-04-2023 Telephone encount er Note Pt left VM stating, I'm returning a call about a PSA that needs redone. Attempted to call pt to give same information as was relayed to in previous TE and received very loud music with no option to leave VM. [facility] 02-04-2023 Miscellaneous Notes Formattin g of this note might be different from the original. Pt left VM stating, I'm returning a call about a PSA that needs redone. Attempted to call pt to give same information as was relayed to in previous TE and received very loud music with no option to leave VM. TC to pt, received music and no VM. I called pt's and notified her to let pt know that his PSA results were 4.1 which is higher than normal and that Dr. Canela put in a total and free PSA to be drawn in 2 weeks and that he can get that drawn at any [facility] or [facility] facility. Patient's verbalized understanding and has no further questions at this time. His PSA is 4.1. This is higher than it should be for his age. I recommend free and total PSA in 2 weeks documented in this encounter [facility] 02-03-2023 Telephone encount er Note TC to pt, received music and no VM. I called pt's and notified her to let pt know that his PSA results were 4.1 which is higher than normal and that Dr. Canela put in a total and free PSA to be drawn in 2 weeks and that he can get that drawn at any [facility] or [facility] facility. Patient's verbalized understanding and has no further questions at this time. [facility] 02-03-2023 Telephone encount er Note His PSA is 4.1. This is higher than it should be for his age. I recommend free and total PSA in 2 weeks [facility] 02-01-2023 History of Presen t illness Narrative Images from the original note were not included. Wendy Canela MD 02/01/2023 at 3:19 PM UROLOGY INITIAL OFFICE VISIT PATIENT NAME: Jair Rojas DATE OF : 1965 TODAY'S DATE: 02/01/2023 Chief Complaint: Chief Complaint Patient presents with New Patient Erectile Dysfunction HPI Mr. Rojas is a 57 y.o. male who presents with erectile dysfunction. He is a insulin-dependent diabetic and has had problems with the ED for the last 3 years. He gets 50% rigid which is not suitable for intercourse. He has a strong libido and has a testosterone level of 614. He denies smoking and denies coronary artery disease. He has not nitroglycerin. He has had no treatment for his ED. He voids well. He denies nocturia hematuria or dysuria UROLOGY Testosterone level-614 Review of Systems Constitutional: Negative for unexpected weight change. HENT: Negative for ear pain and trouble swallowing. Eyes: Negative for pain and discharge. Respiratory: Negative for shortness of breath and wheezing. Cardiovascular: Negative for chest pain and palpitations. Gastrointestinal: Negative for anal bleeding and rectal pain. Endocrine: Negative for cold intolerance and heat intolerance. Genitourinary: See HPI Skin: Negative for rash. Neurological: Negative for tremors and weakness. Psychiatric/Behavioral: Negative for suicidal ideas. The patient is not hyperactive. Past Medical History: Past Medical History: Diagnosis Date Diabetes (HCC) Past Surgical History: Past Surgical History: Procedure Laterality Date SPLENECTOMY, PARTIAL 1999 Current Medications: Prior to Admission medications Medication Sig Start Date End Date Taking? Authorizing Provider HumaLOG RADHA 100 UNIT/ML pen injection INJECT 10 UNIT (0.1 ML) SUBCUTANEOUSLY 3 TIMES A DAY, MAX DAILY DOSE: 50 UNITS PLUS SLIDING SCALE 01/18/23 Yes Historical Provider, levothyroxine (Synthroid, Levoxyl) 88 MCG tablet Take 88 mcg by mouth daily. 01/24/23 Yes Historical Provider, lisinopril 30 MG tablet Take 30 mg by mouth daily. 01/18/23 Yes Historical Provider, rosuvastatin (Crestor) 5 MG tablet Take 5 mg by mouth daily. 01/25/23 Yes Historical Provider, evelio Pereagn, 100 UNIT/ML solution pen-injector Inject 15 Units under the skin daily. 10/22/22 Yes Historical Provider, sildenafil (Viagra) 100 MG tablet Take 1 tablet (100 mg) by mouth Daily as needed for erectile dysfunction. 02/01/23 02/01/24 Wendy Canela MD Allergies: Patient has no known allergies. Social History: Social History Socioeconomic History Marital status: Spouse name: Not on file Number of children: Not on file Years of education: Not on file Highest education level: Not on file Occupational History Not on file Tobacco Use Smoking status: Former Types: Cigarettes Smokeless tobacco: Never Substance and Sexual Activity Alcohol use: Yes Drug use: Never Sexual activity: Not on file Other Topics Concern Not on file Social History Narrative Not on file Social Determinants of Health Financial Resource Strain: Not on file Food Insecurity: Not on file Transportation Needs: Not on file Physical Activity: Not on file Stress: Not on file Social Connections: Not on file Intimate Partner Violence: Not on file Housing Stability: Not on file Family History: No family history on file. VITALS: BP (!) 155/80 Pulse 68 Ht 5' 8 (1.727 m) Wt 145 lb (65.8 kg) BMI 22.05 kg/m Physical Exam Constitutional: Patient is oriented to person, place, and time. Patient appears well-developed and well-nourished. No distress. HENT: Head: Normocephalic and atraumatic. Eyes: Pupils are equal, round, and reactive to light. EOM are normal. No scleral icterus. Neck: Normal range of motion. Neck supple. No JVD present. Cardiovascular: Normal rate and regular rhythm. Pulmonary/Chest: Effort normal. No respiratory distress. Abdominal: Soft. Exhibits no distension and no mass. There is no rebound. Genitourinary: Penis is circumcised no lesions or discharge Testicles descended no mass or tenderness Prostate 30 g soft benign Musculoskeletal: Patient exhibits no edema or deformity. Neurological: Is alert and oriented to person, place, and time. Skin: Skin is warm and dry. Psychiatric: Has a normal mood and affect. Judgment normal. DATA: LABS: No results found for: PSAFREE, PSAFREEPCT No results for input(s): PSAFREE, PSAFREEPCT in the last 72 hours. No results found for: TESTOSTERONE No results found for: WBC, HGB, HCT, MCV, PLT No results found for: GLUCOSE, CALCIUM, NA, K, CO2, CL, BUN, CREATININE No components found for: LABURIN @LASTPROCPOC@ Radiology Review: Impression: Jair was seen today for new patient and erectile dysfunction. Diagnoses and all orders for this visit: Erectile dysfunction due to arterial insufficiency (Primary) - sildenafil (Viagra) 100 MG tablet; Take 1 tablet (100 mg) by mouth Daily as needed for erectile dysfunction. Disease of prostate - PSA Total; Future - PSA Total Jair Rojas is a 57 y.o. male with Erectile dysfunction BPH Insulin-dependent diabetes Plan: He has a normal testosterone level. Trial with Viagra 100 mg discussed the risks, he is not on nitroglycerin PSA level Call in 2 to 3 weeks to see how the Viagra is working We did discuss vacuum erection device, penile injections, inflatable penile prosthesis. If Viagra is not helping consider Trimix testing. Follow up for call in 2-3 weeks to see how viagra is working. Wendy Canela MD 02/01/23 3:19 PM documented in this encounter [facility] 02-01-2023 Miscellaneous Notes Addended by: ANKIT GARZA on: 02/01/2023 03:34 PM Modules accepted: Orders documented in this encounter [facility] 02-01-2023 Note Addended by: ANKIT ROGERS on: 02/01/2023 03:34 PM Modules accepted: Orders [facility] 02-01-2023 Note Addended by: ANKIT ROGERS on: 02/01/2023 03:34 PM Modules accepted: Orders [facility] 05-22-2022 Nurse Progress note patient refused to have medication infused as ordered, patient requested the infusion be infused more rapidly than ordered. this nurse stated that is not how the medication is ordered. patient stated I have it infused like this every time and have had no complications Digitally Signed by Nicolasa Sr RN on 05/22/2022 06:26 PM [facility] 05-22-2022 Evaluation + Plan note Diagnostic Tests PendingIgG 05/22/22 [facility] Evaluation + Plan note No data available for this section [facility] documented in this encounter [facility]* Diagnosis Elevated PSA- Primary Elevated prostate specific antigen (PSA) [facility] No data available for this section [facility] Progress note No data available for this section [facility] Summary Purpose Family History No Family History Records FoundNo Family History Records Found Advance Directives No Advanced Directives Records FoundNo Advanced Directives Records Found Additional Source Comments Care Team (unrecognized sect ion and content) 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 [place] [address] Surgeon Urology 12/18/22 Care Team (unrecognized sect ion and content) Care Team Personnel Name: PETAR LEYVA MD Member Role: Primary Care Physician Address: Address: [address] [place] [address] Care Team Related Persons Name: CRYSTAL CHU Address: [address] [phone] Care Team Personnel Name: PETAR LEYVA MD Member Role: Primary Care Physician Address: Address: [address] [place] [address] Care Team Related Persons Name: CHU ROJAS Address: [address] [phone] Care Team Personnel Name: PETAR LEYVA MD Member Role: Primary Care Physician Address: Address: [address] [place] [address] Care Team Related Persons Name: ASHLEY ROJASY Address: [address] [phone] Care Team Personnel Name: PETAR LEYVA MD Member Role: Primary Care Physician Address: Address: [address] [place] [address] Care Team Related Persons Name: CHU ROJAS Address: [address] [phone] Care Team Personnel Name: PETAR LEYVA MD Member Role: Primary Care Physician Address: Address: [address] [place] [address] Care Team Related Persons Name: CHU ROJAS Address: [address] [phone] (unrecognized sect ion and content) No Status Records FoundNo Status Records Found INFORMATION SOURCE (unrecogn ized section and content) DATE CREATED AUTHOR AUTHOR'S ORGANIZ ATION 03/03/2023 [facility] Reason for Visit (unrecogniz ed section and content) Reason Onset Date Comments Results 02/03/2023 FOR RECORDS PERTAINING TO PATIENTS WHO ARE OR HAVE BEEN ENROLLED IN A CHEMICAL DEPENDENCY/SUBSTANCEABUSE PROGRAM, SOME INFORMATION MAY BE OMITTED. This clinical summary was aggregated from multiple sources. Caution should be exercised in using it in the provision of clinical care. This summary normalizes information from multiple sources, and as a consequence, information in this document may materially change the coding, format and clinical context of patient data. In addition, data may be omitted in some cases. CLINICAL DECISIONS SHOULD BE BASED ON THE PRIMARY CLINICAL RECORDS. [employer] [facility]. provides no warranty or guarantee of the accuracy or completeness of information in this document.
[2023-08-17 17:54] LABS: Vitamin D,25 Hydroxy 36.5 ng/mL
[2023-08-17 17:59] LABS: Microalbumin:Creatinine Ratio 1414.6 mg/g CRE (<30 mg/g CRE)
[2023-08-17 18:02] LABS: ALB/GLOB Ratio 0.8 RATIO (0.9-2.4); AST(SGOT) 49 U/L (15-37); Alanine Aminotransfer ALT/SGPT 61 U/L (16-61); Albumin, Serum 3.7 g/dL (3.2-5.0); Alkaline Phosphatase 208 U/L (45-117); Anion Gap 5 (5-15); BUN 21 mg/dL (7-18); BUN/Creat Ratio 16.2 RATIO (10-20); Calcium,Total 9.8 mg/dL (8.5-10.1); Chloride 108 mmol/L (98-107); Cholesterol 185 mg/dL (200); EST Glomerular Filtration Rate 60 mL/min (>60); Est Glom Filt Rate - Afr Amer 73 mL/min (>60); Globulin 4.4 g/dL (2.2-4.2); Glucose 135 mg/dL (74-106); High Density Lipoprotein 69 mg/dL; Potassium 4.2 mmol/L (3.5-5.1); Protein, Total 8.1 g/dL (6.4-8.2); Sodium Level 138 mmol/L (136-145); T4 Free Direct 1.06 ng/dL (0.76-1.46); Thyroid Stim Hormone (TSH) 1.88 uIU/mL (0.358-3.74); Triglycerides 124 mg/dL; Very Low Density Lipoprotein 25 mg/dL (5-40)
== END | disposition home or self-care (01) ==
LOC: LAB 16:36
PROVIDERS: Referring Provider Internal Medicine Endocrinology, Diabetes & Metabolism; Visit Provider Internal Medicine Endocrinology, Diabetes & Metabolism
DX: E10.29 Type 1 diabetes mellitus with other diabetic kidney complication (principal); R80.9 Proteinuria, unspecified; E03.9 Hypothyroidism, unspecified; E55.9 Vitamin D deficiency, unspecified; E78.00 Pure hypercholesterolemia, unspecified; R74.8 Abnormal levels of other serum enzymes
CPT/HCPCS: 36415; 80053; 80061; 82043; 82306; 82570; 84439; 84443

== ENCOUNTER → 2023-10-26 | Outpatient (CLI) | payer BC, SELFPAY ==
[2023-10-26 15:40] LABS: Absolute Lymphocyte Count 2.56 X10^3/uL (0.83-4.51); Absolute Neutrophil Count 3.4 X10^3/uL (2.0-7.7); Basophil# 0.07 X10^3/uL; Basophil% 0.9 % (0-1); Eosinophil# 0.32 X10^3/uL; Eosinophils% 4.2 % (0-5); Hemoglobin 13.8 g/dL (13.0-16.5); Lymphocyte # 2.56 X10^3/ul (0.83-4.51); Lymphocyte % 33.6 % (19-41); Mean Corp Hgb Conc 32.9 g/dL (32-36); Mean Corpuscular Hgb 30.1 pg (27.0-32.0); Mean Corpuscular Volume 91.7 fL (80-94); Mean Platelet Vol. 13.3 fl (6.2-12.0); Monocyte# 1.23 X10^3/uL; Monocyte% 16.1 % (0-10); NRBC Flagged by Analyzer 0 % (0-5); Neutrophil # 3.42 X10^3/uL (2.7-7.7); Neutrophil % 44.9 % (47-70); Platelet Count 207 K/mm3 (150-450); RBC Distribution Width CV 15.2 % (11.6-14.6); RBC Distribution Width SD 51.4 fl (35.1-43.9); Red Blood Count 4.58 M/mm3 (4.6-6.2); White Blood Count 7.6 K/mm3 (4.4-11.0)
[2023-10-28 04:07] LABS: Immunoglobulin G 1478 mg/dL (603-1613)
== END | disposition home or self-care (01) ==
LOC: LAB 14:11
DX: D80.3 Selective deficiency of immunoglobulin G [IgG] subclasses (principal)
CPT/HCPCS: 36415; 82784; 85025

== ENCOUNTER 2024-02-15 14:22 | Outpatient (RCR) | payer BC, SELFPAY ==
[2024-02-15 14:52] LABS: Absolute Lymphocyte Count 2.45 X10^3/uL (0.83-4.51); Absolute Neutrophil Count 2.6 X10^3/uL (2.0-7.7); Basophil# 0.05 X10^3/uL; Basophil% 0.7 % (0-1); Eosinophil# 0.32 X10^3/uL; Eosinophils% 4.8 % (0-5); Hematocrit 40.7 % (40-54); Hemoglobin 13.6 g/dL (13.0-16.5); Lymphocyte # 2.45 X10^3/ul (0.83-4.51); Lymphocyte % 36.6 % (19-41); Mean Corp Hgb Conc 33.4 g/dL (32-36); Mean Corpuscular Hgb 30.6 pg (27.0-32.0); Mean Corpuscular Volume 91.5 fL (80-94); Mean Platelet Vol. 13.5 fl (6.2-12.0); Monocyte# 1.25 X10^3/uL; Monocyte% 18.7 % (0-10); NRBC Flagged by Analyzer 0 % (0-5); Neutrophil # 2.62 X10^3/uL (2.7-7.7); Neutrophil % 39.1 % (47-70); POSITIVE MORPHOLOGY YES; Platelet Count 152 K/mm3 (150-450); RBC Distribution Width CV 15.1 % (11.6-14.6); RBC Distribution Width SD 50.9 fl (35.1-43.9); Red Blood Count 4.45 M/mm3 (4.6-6.2); White Blood Count 6.7 K/mm3 (4.4-11.0)
[2024-02-15 15:46] LABS: Differential Indicated SCAN CRITERIA MET
[2024-02-15 15:51] LABS: Differential Comment SCANNED
[2024-02-15 15:57] LABS: Anisocytosis 1+; Ovalocyte 2+; Schistocytes 1+; Target Cells 1+
[2024-02-17 04:08] LABS: Immunoglobulin G 1485 mg/dL (603-1613)
== END 2024-02-16 18:00 | disposition home or self-care (01) ==
LOC: LAB 14:22
DX: D83.9 Common variable immunodeficiency, unspecified (principal)
CPT/HCPCS: 36415; 82784; 85025

== ENCOUNTER 2024-09-19 14:00 | Outpatient (RCR) | payer BC, SELFPAY ==
[2024-09-19 14:28] LABS: Absolute Neutrophil Count 2.5 X10^3/uL (2.0-7.7); Basophil# 0.05 X10^3/uL; Basophil% 0.7 % (0-1); Eosinophil# 0.31 X10^3/uL; Eosinophils% 4.2 % (0-5); Hematocrit 44.5 % (40-54); Lymphocyte % 44.5 % (19-41); Mean Corp Hgb Conc 33.7 g/dL (32-36); Mean Corpuscular Hgb 30.9 pg (27.0-32.0); Mean Corpuscular Volume 91.8 fL (80-94); Mean Platelet Vol. 12.1 fl (6.2-12.0); Monocyte# 1.21 X10^3/uL; Monocyte% 16.3 % (0-10); NRBC Flagged by Analyzer 0 % (0-5); Neutrophil # 2.53 X10^3/uL (2.7-7.7); POSITIVE MORPHOLOGY YES; Platelet Count 195 K/mm3 (150-450); RBC Distribution Width CV 14.5 % (11.6-14.6); RBC Distribution Width SD 48.9 fl (35.1-43.9); Red Blood Count 4.85 M/mm3 (4.6-6.2); White Blood Count 7.4 K/mm3 (4.4-11.0)
[2024-09-19 15:07] LABS: Atypical Lymphocyte 2+ %; Differential Indicated SCAN CRITERIA MET; Platelet Estimate A (ADEQ)
[2024-09-19 15:08] LABS: Platelet Morphology L
[2024-09-21 08:08] LABS: Immunoglobulin G 1583 mg/dL (603-1613)
== END 2024-09-19 18:00 | disposition home or self-care (01) ==
LOC: LAB 14:00
DX: D83.9 Common variable immunodeficiency, unspecified (principal)
CPT/HCPCS: 36415; 82784; 85025

== ENCOUNTER → 2024-09-21 | Outpatient (CLI) | payer BC, SELFPAY ==
[2024-09-21 17:04] LABS: Microalbumin:Creatinine Ratio 18633.9 mg/g CRE
[2024-09-21 17:47] LABS: ALB/GLOB Ratio 1.1 RATIO (0.9-2.4); AST(SGOT) 75 U/L (<=37); Alanine Aminotransfer ALT/SGPT 74 U/L (<=46); Albumin, Serum 4.1 g/dL (3.4-4.8); Alkaline Phosphatase 236 U/L (40-129); Anion Gap 11 (5-15); BUN 23 mg/dL (4-19); BUN/Creat Ratio 15.5 RATIO (10-20); Carbon Dioxide 24.1 mmol/L (21.0-32.0); Chloride 103 mmol/L (98-108); Creatinine, Serum 1.48 mg/dL (0.70-1.20); EST Glomerular Filtration Rate 54 (>60); Globulin 3.7 g/dL (2.2-4.2); Glucose 92 mg/dL (70-99); Potassium 5.1 mmol/L (3.3-5.1); Protein, Total 7.8 g/dL (5.9-8.4); Sodium Level 138 mmol/L (133-145); Total Bilirubin 0.33 mg/dL (0.00-1.30)
[2024-09-21 20:16] LABS: Cholesterol 176 mg/dL (<=200); High Density Lipoprotein 85 mg/dL; cholesterol:hdl ratio screen 2.07
[2024-09-21 20:38] LABS: Low Density Lipoprotein Calc. 76 mg/dL; Triglycerides 72 mg/dL; Very Low Density Lipoprotein 14 mg/dL (5-40)
== END | disposition home or self-care (01) ==
LOC: LAB 16:11
PROVIDERS: Referring Provider Internal Medicine Endocrinology, Diabetes & Metabolism; Visit Provider Internal Medicine Endocrinology, Diabetes & Metabolism
DX: E10.65 Type 1 diabetes mellitus with hyperglycemia (principal); E10.29 Type 1 diabetes mellitus with other diabetic kidney complication; R80.9 Proteinuria, unspecified; E03.9 Hypothyroidism, unspecified
CPT/HCPCS: 36415; 80053; 80061; 82043; 82570; 84443

== ENCOUNTER 2025-01-30 14:13 | Outpatient (RCR) | payer BC, SELFPAY ==
[2025-01-30 14:53] LABS: Hematocrit 42.3 % (40-54); Hemoglobin 14.2 g/dL (13.0-16.5); Immature Granulocytes Count 0.010 X10^3/uL (0.0-0.0); Mean Corp Hgb Conc 33.6 g/dL (32-36); Mean Corpuscular Volume 92.8 fL (80-94); Mean Platelet Vol. 12.0 fl (6.2-12.0); NRBC Flagged by Analyzer 0 % (0-5); Platelet Count 178 K/mm3 (150-450); RBC Distribution Width CV 14.6 % (11.6-14.6); RBC Distribution Width SD 50.3 fl (35.1-43.9); Red Blood Count 4.56 M/mm3 (4.6-6.2); White Blood Count 7.2 K/mm3 (4.4-11.0)
[2025-02-01 05:07] LABS: Immunoglobulin G 1502 mg/dL (603-1613)
== END 2025-02-15 21:06 | disposition home or self-care (01) ==
LOC: LAB 14:13
DX: C83.90 Non-follicular (diffuse) lymphoma, unspecified, unspecified site (principal)
CPT/HCPCS: 36415; 82784; 85025